=== PATIENT | male | born 1960 | race Caucasian/White ===

== ENCOUNTER 2018-04-11 10:56 | Outpatient (REF) | payer BC, OTHER, SELFPAY ==
[2018-04-14 09:10] LABS: PSA, Screening 0.5 ng/ml (0-3.5)
== END 2018-04-11 11:16 ==
LOC: NCHCN 10:56
PROVIDERS: PCP Family Medicine; Visit Provider Family Medicine
DX: Z00.00 Encounter for general adult medical examination without abnormal findings (principal); Z12.5 Encounter for screening for malignant neoplasm of prostate
CPT/HCPCS: 84153

== ENCOUNTER 2018-09-16 22:21 | Outpatient (REF) | payer OTHER, SELFPAY ==
[2018-09-16 22:44] LABS: CREATININE 0.94 mg/dL (0.70-1.30)
== END 2018-09-16 22:41 ==
LOC: NCHCN 22:21
PROVIDERS: PCP Family Medicine; Visit Provider Family Medicine
DX: M54.5 Low back pain (principal)
CPT/HCPCS: 82565

== ENCOUNTER 2018-10-03 01:45 | Outpatient (CLI) | payer OTHER, SELFPAY ==
--- NOTE | 2018-10-03 15:38 | DI.MRI_ITS ---
SYMPTOMS/DIAGNOSIS: LOW BACK PAIN, M54.5, NUMBNESS IN LEFT LEG MRI OF THE LUMBAR SPINE: T1, T2 and STIR sagittal and T1 and T2 axial sequences were performed. The marrow signal shows some red marrow reconversion. There is a hemangioma in the L2 vertebral body. The conus medullaris appears normal. The aorta is normal in diameter. There are no compression fractures. The L1-2 level is unremarkable. There is mild loss of disc height and concentric bulging at L2-3. There are mild facet degenerative changes, but no significant central canal stenosis or neural foraminal narrowing. At L3-4, there is broad-based disc bulging, which is greater laterally and toward the left, which causes severe narrowing of the left neural foramen. There is mild narrowing of the right neural foramen but no significant central canal stenosis. At L4-5, there is moderate loss of disc height, endplate osteophytes and broad-based disc bulging. There are mild facet joint degenerative changes. There is slight central canal stenosis. There is bilateral moderate to severe neural foraminal narrowing. At L5-S1, there is mild posterior disc bulging. There is no significant neural foraminal narrowing or central canal stenosis. IMPRESSION: Degenerative disc changes, greatest at L4-5 where there is bilateral neural foraminal narrowing as well as mild central canal stenosis.
== END 2018-10-03 02:05 ==
PROVIDERS: PCP Family Medicine; Visit Provider Family Medicine
DX: M54.5 Low back pain (principal); R20.0 Anesthesia of skin; M51.16 Intervertebral disc disorders with radiculopathy, lumbar region; M48.061 Spinal stenosis, lumbar region without neurogenic claudication
CPT/HCPCS: 72148

== ENCOUNTER 2019-04-21 21:15 | Outpatient (REF) | payer OTHER, SELFPAY ==
[2019-04-21 19:04] LABS: HCT 42.7 % (40.0-50.0); HGB 14.1 g/dL (13.5-17.5); Mean Corpuscular Hemoglobin 30.1 pg (27.0-33.0); Mean Platelet Volume 10.4 fL (8.0-11.0); Platelet Count 358 x1000/uL (130-400); RBC 4.69 m/cumm (4.50-6.00); RBC Distribution Width 13.2 % (11.8-14.1); White Blood Cell Count 8.02 k/cumm (4.4-10.8)
[2019-04-21 19:27] LABS: Hemoglobin A1C 5.8 % (3.8-5.6)
[2019-04-21 19:29] LABS: ALT 33 U/L (16-63); AST 21 U/L (15-37); Albumin 4.2 g/dL (3.4-5.0); Alkaline Phosphatase 53 U/L (46-116); Anion Gap 8.8 mmol/L (3-11); BUN 22 mg/dL (7-18); Bilirubin, Total 0.6 mg/dL (0.2-1.0); CO2 30.2 mmol/L (21.0-32.0); Calcium 9.4 mg/dL (8.5-10.1); Calculated LDL 69 mg/dL; Chloride 104 mmol/L (98-107); Cholesterol 160 mg/dL (<200); Glucose 87 mg/dL (74-106); HDL Cholesterol 70 mg/dL (40-60); Potassium 4.5 mmol/L (3.5-5.1); Sodium 143 mmol/L (136-145); Total Protein 7.5 g/dL (6.4-8.2); Triglyceride 107 mg/dL (<150)
[2019-04-22 07:53] LABS: Vitamin D 25 Total 31.1 ng/ml (30-100)
[2019-04-23 10:17] LABS: PSA, Screening 0.7 ng/mL (0.0-3.5)
== END 2019-04-21 21:35 ==
LOC: NCHCN 21:15
PROVIDERS: PCP Family Medicine; Visit Provider Family Medicine
DX: Z00.00 Encounter for general adult medical examination without abnormal findings (principal); Z13.1 Encounter for screening for diabetes mellitus; Z13.220 Encounter for screening for lipoid disorders; Z12.5 Encounter for screening for malignant neoplasm of prostate; E55.9 Vitamin D deficiency, unspecified; F10.99 Alcohol use, unspecified with unspecified alcohol-induced disorder
CPT/HCPCS: 80053; 80061; 82306; 84153; 85027; 83036

== ENCOUNTER 2019-07-20 13:04 | Outpatient (CLI) | payer OTHER, SELFPAY ==
--- NOTE | 2019-07-20 | DI.RAD_ITS ---
CLINICAL HISTORY: S/P FALL, BRUISE LT LOWER RIBS, ? FX FX, PNEUMOTHORAX OR SPLEEN ABNL. COMPARISON: No exams were available for comparison FINDINGS: LUNGS: Clear. No pneumothorax is seen. Heart: Normal in size. BONES: A marker was placed over the lower left ribs in the area the patient's pain. There is a minim ally displaced fracture of the left 10th rib distally. No additional fractures are seen. The spine shows degenerative changes. IMPRESSION: Distal left 10th rib fracture. No pneumothorax.
== END 2019-07-20 13:24 ==
PROVIDERS: PCP Family Medicine; Visit Provider Family Medicine Adult Medicine
DX: S22.32XA Fracture of one rib, left side, initial encounter for closed fracture (principal); S20.212A Contusion of left front wall of thorax, initial encounter; Z91.81 History of falling
CPT/HCPCS: 71046; 71100

== ENCOUNTER 2019-09-29 14:16 | Outpatient (REF) | payer OTHER, SELFPAY ==
[2019-10-02 19:05] LABS: SARS-CoV-2 RNA Undetected (Undetected)
== END 2019-09-29 14:36 ==
LOC: NCHCN 14:16
PROVIDERS: PCP Family Medicine; Visit Provider Nurse Practitioner Family
DX: Z20.828 Contact with and (suspected) exposure to other viral communicable diseases (principal)
CPT/HCPCS: U0003

== ENCOUNTER 2020-01-05 00:29 | Outpatient (CLI) | payer OTHER, SELFPAY ==
--- NOTE | 2020-01-05 09:00 | ETT_ITS ---
APPROVED REPORT Exam: Exercise Treadmill Patient Location: Out-Patient Room/Bed: Stress Nurse: Beth Chou RN BMI: 26.24 Baseline Rhythm: Sinus Bradycardia with multifocal PVCs Comment: incomplete RBBB Indications: Exertional epigastric to left chest pain, described as 1-3/10 chest discomfort that occu rs intermittently throughout the day. Discomfort does not radiate. Medical History Allergies: No known drug allergies Pretest Chest Pain Characteristics: 1/10 chest discomfort Exercise History: Physically active Lung Sounds: Clear to auscultation Heart Sounds: Irregular Stress Test Details Test: Exercise stress testing was performed using a Saman protocol. Rest Stress HR Resting HR Supine: 58 bpm Max Heart Rate (APMHR): 162 bpm Resting HR Standin bpm Target HR (85% APMHR): 137 bpm Max HR Achieved: 154 bpm % of APMHR: 95 Recovery HR: 79 bpm HR response to stress: Normal HR response to stress BP Resting BP Supine: 140/78 mmHg Resting BP Standin/80 mmHg Max BP: 196/54 mmHg Recovery BP: 144/68 mmHg BP response to stress: Normal blood pressure response to stress. ECG Resting ECG: Sinus Bradycardia Ectopy: occasional multifocal PVC Comment: incomplete RBBB Stress ECG: Sinus Tachycardia w/ PVCs Recovery ECG: Sinus Rhythm Clinical Reason for Termination: Fatigue, legs felt like they were going to give out Stress Symptoms: Leg Fatigue, Dyspnea Exercise duration: 13 min14 sec Highest Stage Reached: 5 Exercise capacity: 14.33 METs Functional Capacity: Above average capacity Stress ECG Conclusion 1. The resting electrocardiogram showed an incomplete right bundle branch block. Patient exercised o n the Saman protocol and completed a workload of 14.33 METS, and achieved 95% of predicted heart rate for age 2. Normal heart rate and blood pressure response to exercise 3. Electrocardiographically there was no evidence of myocardial ischemia. Excellent exercise toleran ce 4. Occasional ventricular ectopic beats seen 5. Goetz treadmill score is 13, low risk Stress Test Summary STAGE Time (mins) Speed (mph) Grade (%) HR BP SYMPTOMS METS Supine 58 140/78 1/10 chest discomfort Standing 63 132/80 1 3 1.7 10 76 134/76 1/10 chest discomfort 4.6 2 6 2.5 12 95 148/70 1/10 chest discomfort 7 3 9 3.4 14 115 160/68 1/10 chest discomfort 10.2 4 12 4.2 16 136 182/62 no chest discomfort, SOB 12.9 1 min recovery 138 196/54 3 min recovery 85 194/60 6 min recovery 79 144/68
== END 2020-01-05 00:49 ==
PROVIDERS: PCP Family Medicine; Visit Provider Family Medicine
DX: R10.13 Epigastric pain (principal); R07.89 Other chest pain; I45.10 Unspecified right bundle-branch block
CPT/HCPCS: 93017

== ENCOUNTER 2020-07-07 18:37 | Outpatient (REF) | payer OTHER, SELFPAY ==
[2020-07-07 16:33] LABS: Anion Gap 9.3 mmol/L (3-11); BUN 18 mg/dL (7-18); CO2 29.7 mmol/L (21.0-32.0); CREATININE 0.9 mg/dL (0.70-1.30); Calcium 9.3 mg/dL (8.5-10.1); Chloride 105 mmol/L (98-107); Glucose 83 mg/dL (74-106); Potassium 4.3 mmol/L (3.5-5.1); Sodium 144 mmol/L (136-145)
[2020-07-07 16:58] LABS: Vitamin D 25 Total 26.9 ng/mL (30-100)
[2020-07-07 22:05] LABS: PSA, Screening 0.6 ng/mL (0.0-3.5)
[2020-07-11 15:04] LABS: IgA 132 mg/dL (85-499); Interpretation (See Note); Tissue Transglutaminase IgA <1.2 U/mL (<4.0)
== END 2020-07-07 18:38 | disposition home or self-care (01) ==
LOC: NCHCN 18:37
PROVIDERS: PCP Family Medicine; Visit Provider Family Medicine
DX: N28.9 Disorder of kidney and ureter, unspecified (principal); E55.9 Vitamin D deficiency, unspecified; R19.7 Diarrhea, unspecified; Z00.00 Encounter for general adult medical examination without abnormal findings; Z12.5 Encounter for screening for malignant neoplasm of prostate
CPT/HCPCS: 80048; 82306; 82784; 83516; 84153

== ENCOUNTER 2020-07-12 10:39 | Outpatient (REF) | payer OTHER, SELFPAY ==
[2020-07-15 16:06] LABS: Pancreatic Elastase, F 249 mcg/g
== END 2020-07-12 10:40 | disposition home or self-care (01) ==
LOC: NCHCN 10:39
PROVIDERS: PCP Family Medicine; Visit Provider Family Medicine
DX: R19.7 Diarrhea, unspecified (principal)
CPT/HCPCS: 87329; 82656

== ENCOUNTER 2020-07-16 16:51 | Outpatient (REF) | payer OTHER, SELFPAY | END 2020-07-16 16:52 | disposition home or self-care (01) | LOC: NCHCN 16:51 | PROVIDERS: PCP Family Medicine; Visit Provider Family Medicine | DX: R19.7 Diarrhea, unspecified (principal) | CPT/HCPCS: 87329 ==

== ENCOUNTER 2020-08-02 01:25 | Outpatient (CLI) | payer OTHER, SELFPAY ==
--- NOTE | 2020-08-02 | DI.CT_ITS ---
Exam(s) CT ABDOMEN PELVIS W EXAM: CT ABDOMEN PELVIS W CLINICAL HISTORY: LLQ ABD PAIN,R10.9,LOOSE STOOLS,MUCUS, ? DIVERTICULITIS TECHNIQUE: Imaging Protocol: Axial computed tomography images with coronal and sagittal reformatted images were created and reviewed CONTRAST MATERIAL: Intravenous: Omnipaque 350 Contrast volume:100 mL Oral: Yes COMPARISON: CT CHEST WITHOUT CONTRAST from 10/01/2013 CT CHEST WITHOUT CONTRAST from 10/01/2013 FINDINGS: ABDOMEN: Lung Bases: There is a stable 5 mm nodule in the right middle lobe. Liver: Normal density. No measurable mass. Portal, Superior Mesenteric, and Splenic Veins: Unremarkable. Gallbladder and Biliary Tract: No radiodense calculus or dilation. Pancreas: Normal density, no abnormal calcifications or inflammatory process. Spleen: Normal. Adrenals: There is a 1.4 cm hypodense nodule in the left adrenal gland likely reflecting an adenoma. Right adrenal gland is unremarkable. Kidneys: Normal size, contour and axis. No radiodense stones or obstructive uropathy. There is a 1.7 cm simple cyst on the upper pole of the right kidney. No further follow-up is recommended. Abdominal Aorta: Abdominal portion non-dilated. Bowel: No obstruction or bowel wall thickening. Appendix is unremarkable. There is diverticulosis of the sigmoid colon, but no evidence of acute diverticulitis. Peritoneal Cavity: No ascites, collection or mesenteric inflammatory response. No free air. Lymph Nodes: Within normal limits. Bones: Within normal limits for the patient's age. Soft Tissues: Bilateral fat containing inguinal hernias are noted. There is a small fat containing um bilical hernia. PELVIS: Bladder: Symmetric distention, no gross wall thickening. Reproductive Organs: Prostate gland is enlarged. Lymph Nodes: Within normal limits. Bones: Within normal limits for the patient's age. IMPRESSION: 1. Sigmoid diverticulosis, but no evidence of acute diverticulitis. 2. No acute abdominal or pelvic process. RADIATION DOSE DELIVERED: 861.11mGy.cm Total DLP DATA REPOSITORY: All CT scans at this facility are submitted to the National Radiology Data Registry (NRDR) Dose Index Registry (DIR) with the [employer] (ACR). RADIATION OPTIMIZATION: All CT scans at this facility use at least one of these dose optimization te chniques: automated exposure control; mA and/or kV adjustment per patient size (includes targeted exa ms where dose is matched to clinical indication); or iterative reconstruction.
[2020-08-02] MEDS: Omnipaque 350 MG/ML 50 ML BTL PO (10:06)
[2020-08-02] MEDS: Breeza Beverage 473 ML BTL PO ×2 (10:06→10:07)
[2020-08-02] MEDS: Normal Saline - Diluent 50 ML VIAL IV (11:14)
[2020-08-02] MEDS: Omnipaque 350 MG/ML 100 ML BTL IJ (11:14)
[2020-08-02] MEDS: Normal Saline Flush 10 ML SYR IVP (11:15)
== END 2020-08-02 01:45 ==
PROVIDERS: PCP Family Medicine; Visit Provider Physician Assistant
DX: R10.32 Left lower quadrant pain (principal); R19.7 Diarrhea, unspecified; R19.5 Other fecal abnormalities; R91.1 Solitary pulmonary nodule; D35.02 Benign neoplasm of left adrenal gland; N28.1 Cyst of kidney, acquired; K57.30 Diverticulosis of large intestine without perforation or abscess without bleeding
CPT/HCPCS: 74177; J3490; Q9967

== ENCOUNTER 2020-08-18 13:47 | Outpatient (REF) | payer OTHER, SELFPAY ==
[2020-08-18 14:30] LABS: Abs Immature Grans 0.01 10^3/uL (0.0-0.06); Absolute Basophil Count 0.05 10^3/uL (0.0-0.2); Absolute Lymphocyte Count 1.23 10^3/uL (1.2-3.4); Absolute Monocyte Count 0.61 10^3/uL (0.1-0.8); Absolute Neutrophil Count 1.87 10^3/uL (1.2-6.7); Basophils % 1.3; HCT 41.1 % (40.0-50.0); HGB 13.5 g/dL (13.5-17.5); Immature Grans % 0.3; MCH 29.8 pg (27.0-33.0); MCHC 32.8 % (32.0-36.0); MCV 90.7 fL (80-95); MPV 10.9 fL (8.0-11.0); Monocytes % 15.4; Nucleated RBC 0 %; Platelet Count 221 10^3/uL (130-400); RBC 4.53 10^6/uL (4.36-5.78); RDW 13.1 % (11.8-14.1); RDW-SD 43.2 fL; WBC 3.97 10^3/uL (4.4-10.8)
[2020-08-18 14:49] LABS: Iron 61 ug/dL (65-175); Total Iron Binding Capacity 281 ug/dL (250-450); Transferrin Sat 22 % (20-55)
[2020-08-18 15:08] LABS: Ferritin 160 ng/mL (26-388)
[2020-08-18 15:36] LABS: C-Reactive Protein 1.82 mg/dL (0.0-0.3)
== END 2020-08-18 13:48 | disposition home or self-care (01) ==
LOC: LBN 13:47
PROVIDERS: PCP Physician Assistant; Visit Provider Surgery
DX: R10.32 Left lower quadrant pain (principal); R19.7 Diarrhea, unspecified; N40.0 Benign prostatic hyperplasia without lower urinary tract symptoms; Z86.19 Personal history of other infectious and parasitic diseases; K40.20 Bilateral inguinal hernia, without obstruction or gangrene, not specified as recurrent; D35.02 Benign neoplasm of left adrenal gland
CPT/HCPCS: 82728; 83540; 83550; 84443; 85025; 86140

== ENCOUNTER 2020-09-14 02:27 | Outpatient (CLI) | payer OTHER, SELFPAY ==
[2020-09-14 12:01] LABS: Source Nasal/Nares
[2020-09-14 14:39] LABS: COVID-19 PCR Negative (Negative)
== END 2020-09-14 02:28 | disposition home or self-care (01) ==
PROVIDERS: PCP Physician Assistant; Visit Provider Surgery
DX: Z20.822 Contact with and (suspected) exposure to COVID-19 (principal); Z01.818 Encounter for other preprocedural examination
CPT/HCPCS: 87635

== ENCOUNTER 2020-09-16 08:18 | Day surgery (SDC) | payer OTHER, SELFPAY ==
[2020-09-16 08:36] VITALS: BP 140/82; PULSE 54; RESP 14; TEMP 36; O2SAT 100
[2020-09-16] MEDS: Lactated Ringers 1,000 ML 80 ML IV ×2 (09:08→12:05)
--- NOTE | 2020-09-16 09:46 | W.ANESPRE ---
General Info Date of Service Date Performed: 09/16/20 Height: 6 ft 3.2 in Weight: 95.254 kg Body Mass Index (BMI): 26.1 Surgical Procedure: Operation Date: 09/16/20 09:20 Proposed Procedures Side Surgeon p Colonoscopy/Gastroscopy Whitney Ferguson DO Meds Allergies and Home Medications Allergies Allergy/AdvReac Type Severity Reaction Status Date / Time egg AdvReac Mild diarrhea Unverified 09/14/20 12:16 Home Medication Medication Instructions Recorded cholecalciferol (vitamin D3) 5,000 unit PO DAILY 08/24/15 multivitamin [Daily Multiple 1 ea PO DAILY 08/24/15 Vitamin] sildenafil 50 mg tablet 50 mg PO DAILY PRN 08/10/20 bisacodyl 5 mg tablet,delayed 5 mg PO ONCE #4 tab 08/18/20 release polyethylene glycol 3350 17 238 g PO ONCE #238 g 08/18/20 gram/dose oral powder ferrous [id number] conc 2 cap PO DAILY 09/14/20 [Iron Complex/C/B12] lactobacillus comb no.10 85 cell PO DAILY 09/14/20 [Probiotic] Current Visit Medications: Current Medications Generic Name Dose Route Start Last Admin Trade Name Freq PRN Reason Stop Dose Admin Hyoscyamine Sulfate 0.125 mg 09/16/20 09:03 Hyoscyamine 0.125 Mg Sl/Oral/Chew SL DIRECTED PRN Ringer's Solution 1,000 mls @ 80 mls/hr 09/16/20 06:00 09/16/20 09:08 IV 10/15/20 23:59 80 mls/hr INFUSION ARMOND Administration IV Miscellaneous Supplies 1 each 09/16/20 06:00 Iv Access IV 10/15/20 23:59 DIRECTED ARMOND Sodium Chloride 0 ml 09/16/20 06:00 Normal Saline Flush 10 Ml Syr IV 10/15/20 23:59 PRN PRN Sodium Chloride 0 ml 09/16/20 06:00 Normal Saline 10 Ml Vial IJ 10/15/20 23:59 DIRECTED PRN Sterile Water 0 ml 09/16/20 06:00 Water,Injection,Sterile 10 Ml Vial IJ 10/15/20 23:59 DIRECTED PRN PFSH Active Problems Active Problems: Problem Status Onset Code Sensorineural hearing loss of both ears H90.3 Abnormal auditory perception H93.299 Left sided abdominal pain R10.9 BPH (benign prostatic hyperplasia) N40.0 Bilateral inguinal hernia, without obstruction or gangrene, not specified as recurrent K40.20 DJD (degenerative joint disease), lumbar M47.816 Bulging of intervertebral disc between L4 and L5 M51.26 Osteoarthritis of spine with radiculopathy, lumbar region M47.26 Foraminal stenosis of lumbar region M48.061 Medical History Medical History Abdominal pain Adjustment disorder with mixed anxiety and depressed mood Alcohol use Benign prostatic hyperplasia Erectile dysfunction Hearing loss, bilateral History of Lyme disease Impacted foreign body in esophagus Left ventricular hypertrophy F/U with stress test 12/2019 Loose stools Lyme disease Prediabetes Renal insufficiency Spinal stenosis of lumbar region Vitamin D deficiency Tobacco Smoking/Tobacco Use Status: Never Alcohol Alcohol Intake: current Alcohol intake frequency: 0-2 drinks per day Substance Use Substance use: Occasionally Substance use type: marijuana Details: edibles 5x/nightly Vital Signs and Lab Results Vital Signs Most Recent Vital Signs in EMR: Most Recent Vital Signs Temp Pulse Resp BP Pulse Ox 36.0 C L 54 L 14 140/82 100 09/16/20 08:36 09/16/20 08:36 09/16/20 08:36 09/16/20 08:36 09/16/20 08:36 Lab Results Blood Type / Crossmatch: No Data to Display Complete Blood Count: White Blood Count 3.97 10^3/uL (4.4-10.8) L 08/18/20 12:50 08/18/20 Red Blood Count 4.53 10^6/uL (4.36-5.78) 08/18/20 12:50 08/18/20 Hemoglobin 13.5 g/dL (13.5-17.5) 08/18/20 12:50 08/18/20 Hematocrit 41.1 % (40.0-50.0) 08/18/20 12:50 08/18/20 Platelet Count 221 10^3/uL (130-400) 08/18/20 12:50 08/18/20 Complete Metabolic Panel: C-Reactive Protein 1.82 mg/dL (0.0-0.3) H 08/18/20 12:50 08/18/20 Liver Function Panel: No Data to Display Coagulation Panel: No Data to Display Cardiac Panel: No Data to Display Arterial Blood Gas: No Data to Display Venous Blood Gas: No Data to Display Pancreas Panel: No Data to Display Thyroid Panel: Thyroid Stimulating Hormone (TSH) 3.10 uIU/mL (0.36-3.74) 08/18/20 12:50 08/18/20 Infectious Disease: Coronavirus (COVID-19)(PCR) Negative (Negative) 09/14/20 08:35 09/14/20 Coronavirus 2019 Source Nasal/nares 09/14/20 08:35 09/14/20 Blood Cultures: No Data to Display Toxicology Panel: No Data to Display Anesthesia Assessment and Plan Anesthesia History Personal History: No History of Anesthesia Complications Family History: No Family History of Anesthesia Complications Exercise Tolerance Exercise Tolerance: Metabolic Equivalents>4 Pertinent Negatives Pertinent Negatives: No Symptoms of GERD, No Major Cardiovascular Symptoms or Complaints, No Major Pulmonary Symptoms or Complaints and No History of CVA/TIA Cardiac & Pulmonary Exam Cardiac Exam: Normal S1/S2 Heart Sounds Pulmonary Exam: Clear Bilateral Breath Sounds Airway Exam Known Difficult Airway: No Mallampati Class: 1 Mouth Opening: Normal (> 3cm) Thyromental Distance: Greater than 3 cm Neck Range of Motion: Full ROM Neck Circumference: Normal Teeth Condition: Normal Dentition ASA Classification ASA Score: ASA 2 Emergency Case?: No NPO Status NPO Status: NPO Clears >2 hours, Solids >8 hours Anesthesia Plan Resuscitation Status: Full Code Anesthesia Technique: General Anesthesia Airway Planned: Natural Airway Monitors Used: Standard Monitors
[2020-09-16 10:06] VITALS: BMI 26.1
--- NOTE | 2020-09-16 12:20 | DSE_ITS ---
Date of service: 09/16/20 Time of Service: 12:20 DS: Diagnosis Discharge Diagnosis (1) Left sided abdominal pain: Status: Acute (2) Bilateral inguinal hernia, without obstruction or gangrene, not specified as recurrent: Status: Acute (3) Loose stools: Status: Acute Discharge Plan Disposition Patient Disposition: HOME Condition: Good Discharge Details Reason For Visit: REFLUX/SCREENING Attending Provider: Whitney Ferguson Primary Care Provider: Brien Soto Home Meds and New Rx's Prescriptions: New pantoprazole [Protonix] 40 mg tablet,delayed release (DR/EC) 40 mg PO DAILY Qty: 90 RF: 5 Continued multivitamin [Daily Multiple] 1 EACH tablet 1 ea PO DAILY RF: 0 cholecalciferol (vitamin D3) 5,000 UNIT tablet 5,000 unit PO DAILY RF: 0 sildenafil [Viagra] 50 mg tablet 50 mg PO DAILY PRNRF: 0 ferrous [id number] conc Capsule 2 cap PO DAILY RF: 0 Probiotic 20 billion cell Capsule 85 cell PO DAILY RF: 0 Discontinued polyethylene glycol 3350 17 gram/dose powder 238 g PO ONCE Qty: 238 RF: 0 bisacodyl [Dulcolax (bisacodyl)] 5 mg tablet,delayed release (DR/EC) 5 mg PO ONCE Qty: 4 RF: 0 Discharge Instructions Additional Instructions: DSU Colonoscopy Post- Op Instructions Instructions for Everyone who is given Anesthesia: For your safety, please do the following for the next twenty-four (24) hours: *Do Not operate a motor vehicle (car, truck, motorcycle, etc.) *Do Not drink alcoholic beverages or use any recreational drugs for the first 24 hours or while taking pain medications. The medications in your body may have a reaction that can be dangerous. *Do Not make any important decisions or sign any important papers. Findings: stomach and colon scope were both normal. Biopsy's were taken Continue with lifestyle modifications: no alcohol, tobacco products, Aspirin or NSAID's (ibuprofen, Motrin, Naprosyn, aleve, etc), soda pop/any carbonated beverages, caffeine (including tea & chocolate). Try to limit: acidic foods, (tomatoes, citrus, onions, peppermints) spicy foods. Do not lie down for 30 minutes after eating, and do not eat 2 hours prior to bedtime. Avoid wearing tight fitting clothing/ belts Follow up:3wks 1. No lifting over 20 pounds or strenuous activity for the first 24 hours after your procedure. After 24 hours there are no restrictions on your activity but you may feel fatigued for a few days. 2. After you arrive home you may have a light meal and return to your normal diet as you can tolerate it without feeling sick to your stomach. 3. You may have a bloated, gaseous feeling in your belly (abdomen) after a colonoscopy. Passing gas and belching will help. Walking or lying down on your left side with your knees flexed may relieve the discomfort. Call the office at [phone] (Office) or [phone] (Hospital) right away if you notice any of the following: a.Vomiting of blood or ?coffee ground stools?. b.Rectal bleeding 1Tbsp, blood clots or continuous bleeding. c.Severe belly (abdominal) pain. d.A hard distended belly (abdomen) and an inability to pass gas. 4. Please don?t expect to have a normal BM (bowel movement) for 2-3 days after your procedure. 5. If there are questions regarding the findings of your procedure, please contact your doctor 6. If you are unable to contact your doctor with a problem, contact the hospital at [phone]. 7. Continue all your regular medications unless directed otherwise. I understand the above instructions and have no questions. Signature of Patient or Adult Escort Name of Responsible Adult Escort Signature of Nurse Date/Time Activity:: see above Diet:: see above Discharge Orders Discharge Orders: Discharge Order (Routine); Ordered 09/16/20 Ordered By: Whitney Ferguson DS: Data Vitals/I&O Vitals and I&O: Vital Signs Temperature 36.0 C L 09/16/20 08:36 Pulse 54 L 09/16/20 08:36 Pulse Rhythm Regular 09/16/20 08:36 Respiratory Rate 14 09/16/20 08:36 Respiratory Depth Normal 09/16/20 08:36 Blood Pressure 140/82 09/16/20 08:36 Pulse Oximetry 100 09/16/20 08:36 Oxygen Delivery Method Room Air 09/16/20 08:36 Oxygen Flow Rate 0 09/16/20 08:36 Intake & Output 09/15/20 09/16/20 09/16/20 23:59 11:59 23:59 Intake Total 1100 / 1100 Balance 1100 / 1100 Weight 95.254 kg Intake: IV 1100 / 1100 PFSH Medical History (Updated 09/16/20 @ 12:25 by Whitney Ferguson DO) Abdominal pain Adjustment disorder with mixed anxiety and depressed mood Alcohol use Benign prostatic hyperplasia Erectile dysfunction Hearing loss, bilateral History of Lyme disease Impacted foreign body in esophagus Left ventricular hypertrophy F/U with stress test 12/2019 Loose stools Lyme disease Prediabetes Renal insufficiency Spinal stenosis of lumbar region Vitamin D deficiency Social History Smoking/Tobacco Use Status: Never Smoking risk assessment performed?: Yes Alcohol Intake: current Alcohol Intake frequency: 0-2 drinks per day Drug use: Occasionally Substance use type: marijuana Details: edibles 5x/nightly Do you feel safe at home: Yes Do you feel safe in your relationship?: Yes
[2020-09-16 12:21] VITALS: BP 120/75; PULSE 62; RESP 18; TEMP 36.5; O2SAT 100
--- NOTE | 2020-09-16 12:23 | PDOC.DSDIS_ITS ---
Discharge Plan Disposition Patient Disposition: HOME Condition: Good Discharge Details Reason For Visit: REFLUX/SCREENING Attending Provider: Whitney Ferguson Primary Care Provider: Brien Soto Home Meds and New Rx's Prescriptions: New pantoprazole [Protonix] 40 mg tablet,delayed release (DR/EC) 40 mg PO DAILY Qty: 90 RF: 5 Continued multivitamin [Daily Multiple] 1 EACH tablet 1 ea PO DAILY RF: 0 cholecalciferol (vitamin D3) 5,000 UNIT tablet 5,000 unit PO DAILY RF: 0 sildenafil [Viagra] 50 mg tablet 50 mg PO DAILY PRNRF: 0 ferrous [id number] conc Capsule 2 cap PO DAILY RF: 0 Probiotic 20 billion cell Capsule 85 cell PO DAILY RF: 0 Discontinued polyethylene glycol 3350 17 gram/dose powder 238 g PO ONCE Qty: 238 RF: 0 bisacodyl [Dulcolax (bisacodyl)] 5 mg tablet,delayed release (DR/EC) 5 mg PO ONCE Qty: 4 RF: 0 Discharge Instructions Additional Instructions: DSU Colonoscopy Post- Op Instructions Instructions for Everyone who is given Anesthesia: For your safety, please do the following for the next twenty-four (24) hours: *Do Not operate a motor vehicle (car, truck, motorcycle, etc.) *Do Not drink alcoholic beverages or use any recreational drugs for the first 24 hours or while taking pain medications. The medications in your body may have a reaction that can be dangerous. *Do Not make any important decisions or sign any important papers. Findings: stomach and colon scope were both normal. Biopsy's were taken Continue with lifestyle modifications: no alcohol, tobacco products, Aspirin or NSAID's (ibuprofen, Motrin, Naprosyn, aleve, etc), soda pop/any carbonated beverages, caffeine (including tea & chocolate). Try to limit: acidic foods, (tomatoes, citrus, onions, peppermints) spicy foods. Do not lie down for 30 minutes after eating, and do not eat 2 hours prior to bedtime. Avoid wearing tight fitting clothing/ belts Follow up:3wks 1. No lifting over 20 pounds or strenuous activity for the first 24 hours after your procedure. After 24 hours there are no restrictions on your activity but you may feel fatigued for a few days. 2. After you arrive home you may have a light meal and return to your normal diet as you can tolerate it without feeling sick to your stomach. 3. You may have a bloated, gaseous feeling in your belly (abdomen) after a colonoscopy. Passing gas and belching will help. Walking or lying down on your left side with your knees flexed may relieve the discomfort. Call the office at [phone] (Office) or [phone] (Hospital) right away if you notice any of the following: a.Vomiting of blood or ?coffee ground stools?. b.Rectal bleeding 1Tbsp, blood clots or continuous bleeding. c.Severe belly (abdominal) pain. d.A hard distended belly (abdomen) and an inability to pass gas. 4. Please don?t expect to have a normal BM (bowel movement) for 2-3 days after your procedure. 5. If there are questions regarding the findings of your procedure, please contact your doctor 6. If you are unable to contact your doctor with a problem, contact the hospital at [phone]. 7. Continue all your regular medications unless directed otherwise. I understand the above instructions and have no questions. Signature of Patient or Adult Escort Name of Responsible Adult Escort Signature of Nurse Date/Time Activity:: see above Diet:: see above Discharge Orders Discharge Orders: Discharge Order (Routine); Ordered 09/16/20 Ordered By: Whitney Ferguson DS: Diagnosis Discharge Diagnosis (1) Left sided abdominal pain: Status: Acute (2) Bilateral inguinal hernia, without obstruction or gangrene, not specified as recurrent: Status: Acute (3) Loose stools: Status: Acute (4) GERD (gastroesophageal reflux disease): Status: Chronic
--- NOTE | 2020-09-16 12:24 | W.ANESPOSTOP ---
Postoperative Evaluation Date, Time and Location Date Performed: 09/16/20 Time Performed: 12:25 Patient Location: Day Surgery Unit Vital Signs Most Recent Imported Vital Signs: Most Recent Vital Signs Temp Pulse Resp BP Pulse Ox 36.0 C L 54 L 14 140/82 100 09/16/20 08:36 09/16/20 08:36 09/16/20 08:36 09/16/20 08:36 09/16/20 08:36 Most Recent Manually Entered Vital Signs: Adult Blood Pressure: 120/75 Heart Rate: 56 Respirations: 12 Oxygen Saturation (%): 98 Temperature (C): 36.5 C Pain Score (0-10 Scale): 0 Assessment Mental Status: Awake (Alert & Oriented to Patient Baseline) Airway and Respiratory Function: Patent airway with normal (patient baseline) respiratory exam Cardiovascular Function: Hemodynamically Stable Hydration Status: Adequately Hydrated Nausea & Vomiting: No Nausea or Vomiting Pain: Pt. Denies Any Pain Peripheral Nerve Block: Patient did not receive a nerve block
[2020-09-16 12:25] VITALS: BP 120/75; PULSE 56; RESP 12; TEMPC 36.5; O2SAT 98
--- NOTE | 2020-09-16 12:29 | PDOC.DSDIS_ITS ---
Discharge Plan Disposition Patient Disposition: HOME Condition: Good Discharge Details Reason For Visit: REFLUX/SCREENING Attending Provider: Whitney Ferguson Primary Care Provider: Brien Soto Home Meds and New Rx's Prescriptions: New pantoprazole [Protonix] 40 mg tablet,delayed release (DR/EC) 40 mg PO DAILY Qty: 90 RF: 5 Continued multivitamin [Daily Multiple] 1 EACH tablet 1 ea PO DAILY RF: 0 cholecalciferol (vitamin D3) 5,000 UNIT tablet 5,000 unit PO DAILY RF: 0 sildenafil [Viagra] 50 mg tablet 50 mg PO DAILY PRNRF: 0 ferrous [id number] conc Capsule 2 cap PO DAILY RF: 0 Probiotic 20 billion cell Capsule 85 cell PO DAILY RF: 0 Discontinued polyethylene glycol 3350 17 gram/dose powder 238 g PO ONCE Qty: 238 RF: 0 bisacodyl [Dulcolax (bisacodyl)] 5 mg tablet,delayed release (DR/EC) 5 mg PO ONCE Qty: 4 RF: 0 Discharge Instructions Instructions: GERD (Gastroesophageal Reflux Disease) (GEN), Diet for Stomach Ulcers and Gastritis (GEN) Additional Instructions: [facility] Colonoscopy Post- Op Instructions Instructions for Everyone who is given Anesthesia: For your safety, please do the following for the next twenty-four (24) hours: *Do Not operate a motor vehicle (car, truck, motorcycle, etc.) *Do Not drink alcoholic beverages or use any recreational drugs for the first 24 hours or while taking pain medications. The medications in your body may have a reaction that can be dangerous. *Do Not make any important decisions or sign any important papers. Findings: stomach and colon scope were both normal. Biopsy's were taken Continue with lifestyle modifications: no alcohol, tobacco products, Aspirin or NSAID's (ibuprofen, Motrin, Naprosyn, aleve, etc), soda pop/any carbonated beverages, caffeine (including tea & chocolate). Try to limit: acidic foods, (tomatoes, citrus, onions, peppermints) spicy foods. Do not lie down for 30 minutes after eating, and do not eat 2 hours prior to bedtime. Avoid wearing tight fitting clothing/ belts Follow up:3wks 1. No lifting over 20 pounds or strenuous activity for the first 24 hours after your procedure. After 24 hours there are no restrictions on your activity but you may feel fatigued for a few days. 2. After you arrive home you may have a light meal and return to your normal diet as you can tolerate it without feeling sick to your stomach. 3. You may have a bloated, gaseous feeling in your belly (abdomen) after a colonoscopy. Passing gas and belching will help. Walking or lying down on your left side with your knees flexed may relieve the discomfort. Call the office at [phone] (Office) or [phone] (Hospital) right away if you notice any of the following: a.Vomiting of blood or ?coffee ground stools?. b.Rectal bleeding 1Tbsp, blood clots or continuous bleeding. c.Severe belly (abdominal) pain. d.A hard distended belly (abdomen) and an inability to pass gas. 4. Please don?t expect to have a normal BM (bowel movement) for 2-3 days after your procedure. 5. If there are questions regarding the findings of your procedure, please contact your doctor 6. If you are unable to contact your doctor with a problem, contact the hospital at [phone]. 7. Continue all your regular medications unless directed otherwise. I understand the above instructions and have no questions. Signature of Patient or Adult Escort Name of Responsible Adult Escort Signature of Nurse Date/Time Activity:: see above Diet:: see above Discharge Orders Discharge Orders: Discharge Order (Routine); Ordered 09/16/20 Ordered By: Whitney Ferguson DS: Diagnosis Discharge Diagnosis (1) Left sided abdominal pain: Status: Acute (2) Bilateral inguinal hernia, without obstruction or gangrene, not specified as recurrent: Status: Acute (3) Loose stools: Status: Acute (4) GERD (gastroesophageal reflux disease): Status: Chronic
--- NOTE | 2020-09-16 12:31 | W.COLOREPORT ---
Date of service: 09/16/20 Time of Service: 12:31 Colonoscopy Report Prep: Miralax/Dulcolax Retraction Time: 10 Procedure Description: After informed consent was obtained the patient was taken to the procedure room and placed in a left decubitous position. Monitors were applied and a time out was done. The patients name, date of , procedure, allergies to medications and metal in their body was reviewed. The patient was then sedated. Once sedated and comfortable a rectal exam was done. External exam was normal. Internal exam revealed a normal sphincter tone and no palpable masses. The scope was then introduced and retrofelexed. no internal hemorrhoids were identified. The scope was then advanced to the cecum w/out difficulty. The TI and appendiceal orifice were identified. There are no polyps, AVM's, or diverticula visulized today. The mucosa is pink and healthy. Bx are taken at 80cm and in the rectum. All specimens are retrieved adn no bleeding is noted. The prep was adequate. The scope was then slowly retracted over 10 minutes back into the rectum. The scope was removed and the patient was woken up and taken back to Same day surgery in stable condition. The patient tolerated the procedure well and there were no immediate complications. Follow up: The patient should follow up in 10 years unless they develop changes in bowel habits or other new gastrointestinal complaints.
--- NOTE | 2020-09-16 12:42 | W.PM.ENDDOP ---
Date of service: 09/16/20 Time of Service: 12:42 Endoscopy Report DATE OF PROCEDURE: 09/16/20 PRE-OP DIAGNOSIS: reflux POST-OP DIAGNOSIS: same SURGEON: Whitney Ferguson ANESTHESIA TYPE: General LMA/ETT ESTIMATED BLOOD LOSS: 1 PATHOLOGY: other COMPLICATIONS: None DISPOSITION: same day PROCEDURE DESCRIPTION: After informed consent was obtained the patient was take to the procedure room and placed in a supine position. Monitors were applied and a time out was done. The patients name, date of , procedure type, allergies to medications and metal in their body was reviewed. A bite block was placed and the patient was sedated. Once sedated and comfortable the gastroscope was advanced through the oropharynx which was grossly normal into the esophagus. The proximal and mid-esophagus were nl. There are no esophageal erosions, varices, diverticula, or strictures apparent. Biopsies were taken. The scope was advanced into the stomach and through the pylorus into the 3rd portion of the duodenum. The duodenum was noted to be nl. Biopsies were done and all specimen is retrieved and no bleeding is noted.. The scope was retracted back into the stomach and biopsies were done to rule out H. pylori. There were no ulcers. The scope was retroflexed. The cardia and fundus were noted to be normal. There is no hiatal hernia noted. The scope was retracted back into the esophagus and biopsies were done of the GE junction to rule out Ruvalcaba's. The Z line was regular. The scope was removed and the patient was woken up and taken back to [facility] in stable condition. Follow up: 3 wks Started on Protonix. Continue with lifestyle modifications: no alcohol, tobacco products, Aspirin or NSAID's (ibuprofen, Motrin, Naprosyn, aleve, etc), soda pop/any carbonated beverages, caffeine (including tea & chocolate), and acidic foods, (tomatoes, citrus, onions, peppermints) spicy or fried/fatty foods. Do not lie down for 30 minutes after eating, and do not eat 2 hours prior to bedtime. Avoid wearing tight fitting clothing/ belts
--- NOTE | 2020-09-16 12:45 | STOM_PTH ---
PATIENT: Desean Traylor LOC: [facility] U#:[id number] AGE/SX: 59/M ROOM: RE09/16/[address]: Whitney Ferguson : 1960 BED: DIS: 09/16/2020 SPEC #: [id number] RECD: 09/16/20 13:00 STATUS: GREGORY RE #: [id number] JULIA: 09/16/20 12:[address]: Whitney Ferguson DEPT: Surgical Specimen RECD BY: Sara Lopez ENTERED: 09/16/20 13:02 SP TYPE: STOMACH OTHR DR: Brien Soto Tissues: 1 - BIOPSY BOWEL 2 - BIOPSY BOWEL 3 - STOMACH BIOPSY 4 - STOMACH BIOPSY 5 - ESOPHAGUS BIOPSY 6 - ESOPHAGUS BIOPSY 7 - BIOPSY BOWEL 8 - BIOPSY BOWEL Procedures: GROSS AND MICRO LEVEL 4 Comments: [id number]
[2020-09-16 13:04] VITALS: BP 154/83; PULSE 54; RESP 16; TEMP 36.4; O2SAT 100
== END 2020-09-16 13:30 | disposition home or self-care (01) ==
PROVIDERS: PCP Physician Assistant; Visit Provider Surgery
PROC: (CPT 45380; principal; 2020-09-16 09:15)
DX: K21.00 Gastro-esophageal reflux disease with esophagitis, without bleeding (principal); K29.80 Duodenitis without bleeding; R73.03 Prediabetes; E55.9 Vitamin D deficiency, unspecified
CPT/HCPCS: 45380; 43239; 88305; J2001

== ENCOUNTER 2021-03-02 17:00 | Outpatient (REF) | payer OTHER, SELFPAY ==
[2021-03-02 14:46] LABS: Abs Immature Grans 0.01 10^3/uL (0.0-0.06); Absolute Basophil Count 0.06 10^3/uL (0.0-0.2); Absolute Eosinophil Count 0.17 10^3/uL (0.0-0.7); Absolute Lymphocyte Count 1.57 10^3/uL (1.2-3.4); Absolute Monocyte Count 0.48 10^3/uL (0.1-0.8); Basophils % 1.3; Eosinophils % 3.6; HCT 40.3 % (40.0-50.0); Immature Grans % 0.2; Lymphocytes % 33.5; MCH 29.7 pg (27.0-33.0); MCHC 32.3 % (32.0-36.0); MCV 92.2 fL (80-95); MPV 10.7 fL (8.0-11.0); Monocytes % 10.2; Neutrophils % 51.2; Nucleated RBC 0 %; Platelet Count 259 10^3/uL (130-400); RBC 4.37 10^6/uL (4.36-5.78); RDW 12.4 % (11.8-14.1); RDW-SD 42.5 fL; WBC 4.69 10^3/uL (4.4-10.8)
[2021-03-02 14:57] LABS: Iron 87 ug/dL (65-175); Total Iron Binding Capacity 293 ug/dL (250-450); Transferrin Sat 30 % (20-55)
[2021-03-02 15:22] LABS: Ferritin 161 ng/mL (26-388); Folate 14.9 ng/mL (8.6-20.0); Vitamin B12 1233 pg/mL (193-986)
== END 2021-03-02 17:01 | disposition home or self-care (01) ==
LOC: LBN 17:00
PROVIDERS: PCP Physician Assistant; Visit Provider Surgery
DX: K21.9 Gastro-esophageal reflux disease without esophagitis; E55.9 Vitamin D deficiency, unspecified; K52.9 Noninfective gastroenteritis and colitis, unspecified; D50.9 Iron deficiency anemia, unspecified; R10.32 Left lower quadrant pain; R14.0 Abdominal distension (gaseous)
CPT/HCPCS: 82306; 82607; 82728; 82746; 83540; 83550; 85025

== ENCOUNTER 2022-02-28 15:26 | Outpatient (REF) | payer OTHER, SELFPAY ==
[2022-02-28 17:59] LABS: PSA, Screening 0.8 ng/mL (<=4.5)
== END 2022-02-28 15:27 | disposition home or self-care (01) ==
LOC: LBN 15:26
PROVIDERS: PCP Physician Assistant; Visit Provider Nurse Practitioner Gerontology
DX: Z12.5 Encounter for screening for malignant neoplasm of prostate (principal); N40.1 Benign prostatic hyperplasia with lower urinary tract symptoms
CPT/HCPCS: 84153

== ENCOUNTER 2022-07-25 16:20 | Outpatient (REF) | payer OTHER, SELFPAY ==
[2022-07-25 16:15] LABS: HCT 40.8 % (40.0-50.0); HGB 13.3 g/dL (13.5-17.5); MCH 29.2 pg (27.0-33.0); MCHC 32.6 % (32.0-36.0); MCV 90 fL (80-95); MPV 11.1 fL (8.0-11.0); Platelet Count 255 10^3/uL (130-400); RBC 4.56 10^6/uL (4.36-5.78); RDW 12.9 % (11.8-14.1); RDW-SD 42.1 fL; WBC 7.23 10^3/uL (4.4-10.8)
[2022-07-25 16:39] LABS: ALT 33 U/L (16-63); AST 19 U/L (15-37); Albumin 4.2 g/dL (3.4-5.0); Alkaline Phosphatase 58 U/L (46-116); Anion Gap 4.8 mmol/L (3-11); BUN 24 mg/dL (7-18); Bilirubin, Total 0.5 mg/dL (0.2-1.0); CO2 30.2 mmol/L (21.0-32.0); CREATININE 0.9 mg/dL (0.70-1.30); Calcium 9.2 mg/dL (8.5-10.1); Chloride 104 mmol/L (98-107); Estimated GFR 97.78 (mL/min/1.73m2); Glucose 88 mg/dL (74-106); Potassium 4.6 mmol/L (3.5-5.1); Sodium 139 mmol/L (136-145); TSH 2.79 uIU/mL (0.36-3.74); Total Protein 7.4 g/dL (6.4-8.2)
[2022-07-25 16:41] LABS: Hemoglobin A1C 5.8 % (<5.7)
[2022-07-25 16:49] LABS: Vitamin D 25 Total 25.5 ng/mL (30-100)
[2022-07-31 14:56] LABS: Testosterone, Total 417 ng/dL (240-950)
== END 2022-07-25 16:21 | disposition home or self-care (01) ==
LOC: NCHCN 16:20
PROVIDERS: PCP Physician Assistant; Visit Provider Physician Assistant
DX: R53.83 Other fatigue (principal); E55.9 Vitamin D deficiency, unspecified
CPT/HCPCS: 80053; 82306; 84403; 85027; 83036; 84439; 84443

== ENCOUNTER 2023-07-12 15:05 | Outpatient (REF) | payer OTHER, SELFPAY ==
[2023-07-12 19:09] LABS: HCT 45.4 % (40.0-50.0); HGB 14.8 g/dL (13.5-17.5); MCH 29.2 pg (27.0-33.0); MCHC 32.6 % (32.0-36.0); MCV 90 fL (80-95); MPV 10.7 fL (8.0-11.0); Platelet Count 282 10^3/uL (130-400); RBC 5.06 10^6/uL (4.36-5.78); RDW 13.6 % (11.8-14.1); RDW-SD 45.1 fL
[2023-07-12 19:42] LABS: Hemoglobin A1C 5.6 % (<5.7)
[2023-07-12 19:45] LABS: ALT 33 U/L (16-63); AST 20 U/L (15-37); Albumin 4.5 g/dL (3.4-5.0); Alkaline Phosphatase 59 U/L (46-116); Anion Gap 11.8 mmol/L (3-11); BUN 18 mg/dL (7-18); Bilirubin, Total 0.6 mg/dL (0.2-1.0); CO2 27.2 mmol/L (21.0-32.0); CREATININE 1.1 mg/dL (0.70-1.30); Calcium 9.5 mg/dL (8.5-10.1); Chloride 105 mmol/L (98-107); Estimated GFR 76.37 (mL/min/1.73m2); Glucose 88 mg/dL (74-106); Lipase 40 U/L (16-77); Potassium 4.3 mmol/L (3.5-5.1); Sodium 144 mmol/L (136-145); Total Protein 7.8 g/dL (6.4-8.2)
[2023-07-12 19:52] LABS: Iron 89 ug/dL (65-175); Total Iron Binding Capacity 322 ug/dL (250-450); Transferrin Sat 28 % (20-55)
== END 2023-07-12 15:06 | disposition home or self-care (01) ==
LOC: NCHCN 15:05
PROVIDERS: PCP Physician Assistant; Visit Provider Physician Assistant
DX: D50.8 Other iron deficiency anemias (principal); R73.03 Prediabetes; R53.83 Other fatigue; R19.7 Diarrhea, unspecified
CPT/HCPCS: 80053; 83690; 85027; 83036; 83540; 83550

== ENCOUNTER 2024-08-07 09:37 | Outpatient (REF) | payer OTHER, SELFPAY ==
[2024-08-07 17:04] LABS: Hemoglobin A1C 5.6 % (<5.7)
[2024-08-07 18:38] LABS: ALT 28 U/L (16-63); AST 25 U/L (15-37); Albumin 4.1 g/dL (3.4-5.0); Alkaline Phosphatase 57 U/L (46-116); Anion Gap 5.4 mmol/L (3-11); BUN 21 mg/dL (7-18); Bilirubin, Total 0.7 mg/dL (0.2-1.0); CO2 29.6 mmol/L (21.0-32.0); CREATININE 0.9 mg/dL (0.70-1.30); Calcium 9.1 mg/dL (8.5-10.1); Calculated LDL 69 mg/dL (<100); Chloride 105 mmol/L (98-107); Cholesterol 150 mg/dL (<200); Estimated GFR 96.57 (mL/min/1.73m2); Glucose 100 mg/dL (74-106); HDL Cholesterol 76 mg/dL (>or=40); Potassium 4.6 mmol/L (3.5-5.1); Sodium 140 mmol/L (136-145); Total Protein 7.3 g/dL (6.4-8.2); Triglyceride 27 mg/dL (<150)
[2024-08-07 23:14] LABS: PSA, Screening 0.7 ng/mL (<=4.5)
== END 2024-08-07 09:38 | disposition home or self-care (01) ==
LOC: NCHCN 09:37
PROVIDERS: PCP Physician Assistant; Visit Provider Physician Assistant
DX: N40.0 Benign prostatic hyperplasia without lower urinary tract symptoms (principal); R73.03 Prediabetes
CPT/HCPCS: 80053; 80061; 84153; 83036

== ENCOUNTER 2025-03-17 10:05 | Outpatient (REF) | payer OTHER, SELFPAY ==
[2025-03-17 16:24] LABS: HCT 42.3 % (40.0-50.0); HGB 14.0 g/dL (13.5-17.5); MCH 29.8 pg (27.0-33.0); MCHC 33.1 % (32.0-36.0); MCV 90 fL (80-95); MPV 11.0 fL (8.0-11.0); Platelet Count 257 10^3/uL (130-400); RBC 4.70 10^6/uL (4.36-5.78); RDW 12.8 % (11.8-14.1); RDW-SD 42.3 fL; WBC 4.86 10^3/uL (4.4-10.8)
[2025-03-17 16:46] LABS: TSH 7.27 uIU/mL (0.55-4.78)
[2025-03-24 16:14] LABS: 25-Hydroxy D Total 26 ng/mL
== END 2025-03-17 10:06 | disposition home or self-care (01) ==
LOC: NCHCN 10:05
PROVIDERS: PCP Physician Assistant; Visit Provider Physician Assistant
DX: R53.82 Chronic fatigue, unspecified (principal); E55.9 Vitamin D deficiency, unspecified
CPT/HCPCS: 82306; 85027; 84439; 84443